=== PATIENT | female | born 1970 | race Caucasian/White ===

== ENCOUNTER 2022-10-30 07:07 | Outpatient (CLI) | payer OTHER, SELFPAY ==
--- NOTE | 2022-10-30 07:17 | MR_ITS ---
WS: [id number] MRI LEFT SHOULDER NONCONTRAST TECHNIQUE: Sagittal T2, coronal T1, T2 and proton density imaging. Axial gradient PDE imaging. CLINICAL INFORMATION: LEFT SHOULDER PAIN COMPARISON: None. FINDINGS: Moderate degenerative arthritis AC joint with mild downsloping acromion. Slight subacromial spurring. Mild edema. Mild narrowing of the subacromial space with slight impingement on the distal supraspina tus. Normal supraspinatus. Normal infraspinatus. Normal teres minor. Normal subscapularis. No acute rotato r cuff tears. Normal biceps tendon in the bicipital groove. Normal biceps labral anchor. Intra-articular biceps ten don appears intact. Normal bone marrow signal in the humerus and glenoid. Glenoid labrum appears lacey sly normal. IMPRESSION: 1. Moderate degenerative arthritis at the AC joint with mild downsloping of the acromion. Slight imp ingement on the distal supraspinatus. 2. Normal rotator cuff. 3. Normal biceps tendon in the bicipital groove. Biceps labral anchor appears intact. 4. No other acute findings.
== END 2022-10-30 07:08 | disposition home or self-care (01) ==
PROVIDERS: Visit Provider Family Medicine
DX: M19.012 Primary osteoarthritis, left shoulder (principal); M25.512 Pain in left shoulder
CPT/HCPCS: 73221

== ENCOUNTER 2023-01-08 10:24 | Outpatient (CLI) | payer OTHER, SELFPAY ==
--- NOTE | 2023-01-08 11:02 | XR_ITS ---
WS: [id number] Exam: XR cervical spine 3V* [id number] Date/Time of Exam: 01/08/2023 11:09 AM Reason For Exam: NECK PAIN ON LEFT SIDE No fracture or dislocation. Mild facet DJD at all levels. Disc spaces are preserved. Paraspinal soft tissues appear normal. The odontoid is intact. XR/XR cervical spine 3V* [id number] IMPRESSION: 1. Mild facet DJD otherwise negative cervical spine study.
== END 2023-01-08 10:25 | disposition home or self-care (01) ==
PROVIDERS: PCP Family Medicine; Visit Provider Family Medicine
DX: M47.812 Spondylosis without myelopathy or radiculopathy, cervical region
CPT/HCPCS: 72040